=== PATIENT | female | born 1990 | race Caucasian/White ===

== ENCOUNTER 2016-12-11 13:55 | Observation (INO) | payer OTHER ==
[2016-12-11] MEDS ORDERED: Ondansetron INJ* 2 MG/ML VIAL IV ONE (14:35)
[2016-12-11 14:56] LABS: Hematocrit 40 % (35-47); Hemoglobin 13.3 g/dl (12.0-16.0); Mean Corpuscular HGB Conc 33 g/dl (31-36); Mean Corpuscular Hemoglobin 29 pg (27-31); Mean Corpuscular Volume 88 fL (80-97); Mean Platelet Volume 8 um3 (7.4-10.4); Red Blood Count 4.55 10^6/ul (4.0-5.4); Red Cell Distribution Width 14 % (10.5-15)
[2016-12-11 15:10] LABS: ALT 17 U/L (7-52); AST 29 U/L (13-39); Albumin 4.2 g/dL (3.2-5.2); Alkaline Phosphatase 57 U/L (34-104); Anion Gap 6 mmol/L (2-11); Blood Urea Nitrogen 10 mg/dL (6-24); C Reactive Protein 24.15 mg/L (< 5.00); CO2 Carbon Dioxide 26 mmol/L (22-32); Calcium 9.4 mg/dL (8.6-10.3); Chloride 104 mmol/L (101-111); Creatine Kinase 120 U/L (10-223); EGFR African American 116.5 (>60); EGFR Non-African American 90.6 (>60); Glucose 95 mg/dL (70-100); Lipase 27 U/L (11.0-82.0); Magnesium 2.1 mg/dL (1.9-2.7); Potassium 3.8 mmol/L (3.5-5.0); Sodium 136 mmol/L (133-145); Total Protein 7.2 g/dL (6.4-8.9)
[2016-12-11 15:24] LABS: Urine Bacteria 1+ (Absent); Urine Bilirubin Negative (Negative); Urine Glucose Negative (Negative); Urine Nitrite Negative (Negative)
[2016-12-11] MEDS ORDERED: Morphine INJ* 2 MG/ML 1 ML SYRINGE IV ONE ×2 (15:29→17:00)
[2016-12-11] MEDS ORDERED: Iohexol 300* (CONTRAST) 10 ML SDV IV ONE (16:07)
--- NOTE | 2016-12-11 17:47 | RAD ---
CLINICAL HISTORY: Right lower quadrant abdominal pain and vomiting COMPARISON: February 17, 2009 TECHNIQUE: Multiple contiguous axial CT scans were obtained of the abdomen and pelvis after the administration of intravenous contrast. Coronal and sagittal multiplanar reformations are submitted for review. Oral contrast was administered. FINDINGS: LUNG BASES: The lung bases are clear. LIVER: The liver is diffusely low in attenuation compared to the spleen. There are no focal hepatic parenchymal masses. BILE DUCTS: There is no intrahepatic or extrahepatic biliary dilatation. GALLBLADDER: The gallbladder is normal, without pericholecystic inflammatory change. PANCREAS: The pancreas is normal, without mass or ductal dilatation. SPLEEN: Normal in size and appearance. UPPER GI TRACT: Evaluation of the gastrointestinal tract is limited by incomplete gastric distention. The upper GI tract is unremarkable. SMALL BOWEL AND MESENTERY: The small bowel is normal in contour, course, and caliber. There is no obstruction or dilatation. There are multiple subcentimeter short axis mesenteric lymph nodes COLON: There is a tubular, vermiform, viscus that is blind-ending and origin is from the cecum. This is mildly enlarged measuring up to 0.8 cm in caliber with mild stranding of the fat of the mesial appendix. There is no loculated fluid collection to suggest abscess. ADRENALS: Normal bilaterally. KIDNEYS: The kidneys are normal in shape, size, contour, and axis. There is no hydronephrosis or nephrolithiasis. BLADDER: The bladder is smooth in contour. PELVIC ORGANS: The uterus and adnexa are grossly normal for technique. AORTA: The aorta is normal. IVC: Unremarkable LYMPH NODES: There is no lymphadenopathy by size criteria. ABDOMINAL WALL: There is a fat-containing umbilical hernia BONES AND SOFT TISSUES: Unremarkable OTHER: None IMPRESSION: 1. THE APPENDIX IS MILDLY DILATED WITH MILD STRANDING OF THE PERIAPPENDICEAL FAT. IN THE CORRECT CLINICAL SETTING, THIS MAY INDICATE EARLY APPENDICITIS. THERE IS NO LOCULATED FLUID COLLECTION TO SUGGEST ABSCESS. 2. FATTY LIVER
[2016-12-11] MEDS ORDERED: Piperac/Tazob 3.375 gm in NS* 3.375 GM/100 ML BAG IVPB ONE (18:32)
[2016-12-11] MEDS ORDERED: Bupivacaine 0.25% EPI 200,000* 30 ML SDV ONE (18:57)
[2016-12-11] MEDS ORDERED: Atracurium* 10 MG/ML 10 ML VIAL ONE (19:18)
[2016-12-11] MEDS ORDERED: Propofol* 10 MG/ML 20 ML BTL IV PUSH ONE (19:18)
[2016-12-11] MEDS ORDERED: fentaNYL* 50 MCG/ML 2 ML VIAL (100 MCG VIAL) ONE ×3 (19:18→20:44)
[2016-12-11] MEDS ORDERED: Midazolam* 1 MG/ML 5 ML VIAL (5 MG) ONE (19:18)
[2016-12-11] MEDS ORDERED: Dexamethasone IV* 4 MG/ML 1 ML (4 MG) ONE (19:18)
[2016-12-11] MEDS ORDERED: Ondansetron INJ* 2 MG/ML VIAL ONE (20:20)
--- NOTE | 2016-12-11 20:35 | ED ---
Abdominal Pain/Female - HPI Summary HPI Summary: Patient arrives to ED with CC of RLQ pain x 2 days. Worsening symptoms since last evening and endorses N/V. Denies D/C/MANNING or back pain. She admits to N/V x 4 weeks attributes this to medication change. She has never been diagnosed with abdominal etiology. She endorses diffuse pain upon palpation of the RLQ. Pain does not radiate and she states pain is worse with walking or sitting. Patient feels better with laying in a neutral position. She has not taken anything for the pain, and only takes medication for depression and anxiety. Denies urinary symptoms. Denies fever, chills, sweats. - History of Current Complaint Chief Complaint: EDAbdPain Stated Complaint: ABD PAIN Time Seen by Provider: 12/11/16 14:02 Hx Obtained From: Patient Hx Last Menstrual Period: 05/23/15 ?: No Onset/Duration: Sudden Onset Timing: Constant Severity Initially: Moderate Severity Currently: Moderate Pain Intensity: 8 Pain Scale Used: 0-10 Numeric Location: Discrete At: RLQ Character: Sharp, Burning Aggravating Factor(s): Nothing Alleviating Factor(s): Position Associated Signs and Symptoms: Positive: Nausea, Vomiting Allergies/Adverse Reactions: Allergies Allergy/AdvReac Type Severity Reaction Status Date / Time Haloperidol [From Haldol] Allergy Severe seizure Verified 12/11/16 13:56 Home Medications: Home Medications ARIPiprazole TAB* [Abilify 2 MG TAB*] 2 mg PO DAILY 12/11/16 [History Confirmed 12/11/16] PMH/Surg Hx/FS Hx/Imm Hx Previously Healthy: Yes Endocrine/Hematology History: Denies: Hx Diabetes, Hx Thyroid Disease Cardiovascular History: Denies: Hx Hypertension Respiratory History: Denies: Hx Asthma, Hx Chronic Obstructive Pulmonary Disease (COPD) GI History: Denies: Hx Ulcer Psychiatric History: Reports: Hx Anxiety, Hx Depression Denies: Hx Attention Deficit Hyperactivity Disorder, Hx Eating Disorder, Hx Panic Disorder, Hx Post Traumatic Stress Disorder, Hx Inpatient Treatment, Hx Community Mental Health Tx, Hx Schizophrenia, Hx Bipolar Disorder, Hx Suicide Attempt, Hx of Violent Episodes Against Others, Hx Substance Abuse, Other Psychiatric Issues/Disorders - Surgical History Surgery Procedure, Year, and Place: tonsillectomy. breast augmentation Infectious Disease History: No Infectious Disease History: Denies: Hx Clostridium Difficile, Hx Hepatitis, Hx Human Immunodeficiency Virus (HIV), Hx of Known/Suspected MRSA, Hx Shingles, Hx Tuberculosis, History Other Infectious Disease, Traveled Outside the [place] in Last 30 Days - Family History Family History: NON CONTRIBUTORY - Social History Occupation: Employed Full-time Lives: With Family Alcohol Use: None Alcohol Amount: 3-4 glasses wine approx 1 day weekly Substance Use Type: Reports: None Smoking Status (MU): Heavy Every Day Tobacco Smoker Type: Cigarettes Amount Used/How Often: shares with her boyfriend - doesn't buy cigs Review of Systems Constitutional: Negative Eyes: Negative Cardiovascular: Negative Respiratory: Negative Positive: Abdominal Pain, Vomiting, Nausea Genitourinary: Negative Positive: no symptoms reported, see HPI Musculoskeletal: Negative Skin: Negative Neurological: Negative Psychological: Normal All Other Systems Reviewed And Are Negative: Yes Physical Exam Triage Information Reviewed: Yes Vital Signs On Initial Exam: Initial Vitals Temp Pulse Resp BP Pulse Ox 97.8 F 78 16 138/60 100 12/11/16 13:56 12/11/16 13:56 12/11/16 13:56 12/11/16 13:56 12/11/16 13:56 Vital Signs Reviewed: Yes Appearance: Positive: Well-Appearing, Well-Nourished Skin: Positive: Warm, Skin Color Reflects Adequate Perfusion Head/Face: Positive: Normal Head/Face Inspection Eyes: Positive: Normal, MAXIMINO, Conjunctiva Clear ENT: Positive: Pharynx normal, TMs normal Neck: Positive: Supple, No Lymphadenopathy Respiratory/Lung Sounds: Positive: Clear to Auscultation, Breath Sounds Present Cardiovascular: Positive: Normal, RRR, Pulses are Symmetrical in both Upper and Lower Extremities Abdomen Description: Positive: Soft, Other: - tenderness upon palpation over RLQ , mcburneys point tenderness, negative ravi's, positive psoas, positive obturator Bowel Sounds: Positive: Present, Hypoactive Musculoskeletal: Positive: Normal Neurological: Positive: Normal, Sensory/Motor Intact, Speech Normal Psychiatric: Positive: Normal AVPU Assessment: Alert Diagnostics - Vital Signs Vital Signs Temp Pulse Resp BP Pulse Ox 12/11/16 17:42 18 12/11/16 16:30 69 101/63 97 12/11/16 16:15 18 12/11/16 16:00 67 106/57 99 12/11/16 15:41 61 102/56 99 12/11/16 15:17 70 99 12/11/16 15:00 102/45 12/11/16 14:54 75 99 12/11/16 14:51 94/43 12/11/16 13:56 97.8 F 78 16 138/60 100 - Laboratory Lab Results: Lab Results 12/11/16 12/11/16 12/11/16 Range/Units 14:20 14:20 14:20 WBC 9.0 (3.5-10.8) 10^3/ul RBC 4.55 (4.0-5.4) 10^6/ul Hgb 13.3 (12.0-16.0) g/dl Hct 40 (35-47) % MCV 88 (80-97) fL MCH 29 (27-31) pg MCHC 33 (31-36) g/dl RDW 14 (10.5-15) % Plt Count 298 (150-450) 10^3/ul MPV 8 (7.4-10.4) um3 Neut % (Auto) 62.9 (38-83) % Lymph % (Auto) 25.4 (25-47) % [place] % (Auto) 6.8 (1-9) % Eos % (Auto) 4.1 (0-6) % Baso % (Auto) 0.8 (0-2) % Absolute Neuts (auto) 5.6 (1.5-7.7) 10^3/ul Absolute Lymphs (auto) 2.3 (1.0-4.8) 10^3/ul Absolute Monos (auto) 0.6 (0-0.8) 10^3/ul Absolute Eos (auto) 0.4 (0-0.6) 10^3/ul Absolute Basos (auto) 0.1 (0-0.2) 10^3/ul Absolute Nucleated RBC 0.01 10^3/ul Nucleated RBC % 0.1 Sodium 136 (133-145) mmol/L Potassium 3.8 (3.5-5.0) mmol/L Chloride 104 (101-111) mmol/L Carbon Dioxide 26 (22-32) mmol/L Anion Gap 6 (2-11) mmol/L BUN 10 (6-24) mg/dL Creatinine 0.77 (0.51-0.95) mg/dL Est GFR ( Amer) 116.5 (>60) Est GFR (Non-Af Amer) 90.6 (>60) BUN/Creatinine Ratio 13.0 (8-20) Glucose 95 (70-100) mg/dL Lactic Acid 0.6 (0.5-2.0) mmol/L Calcium 9.4 (8.6-10.3) mg/dL Magnesium 2.1 (1.9-2.7) mg/dL Total Bilirubin 0.30 (0.2-1.0) mg/dL AST 29 (13-39) U/L ALT 17 (7-52) U/L Alkaline Phosphatase 57 (34-104) U/L Total Creatine Kinase 120 (10-223) U/L C-Reactive Protein 24.15 H (< 5.00) mg/L Total Protein 7.2 (6.4-8.9) g/dL Albumin 4.2 (3.2-5.2) g/dL Globulin 3.0 (2-4) g/dL Albumin/Globulin Ratio 1.4 (1-3) Lipase 27 (11.0-82.0) U/L Beta HCG, Quant < 0.60 mIU/mL Urine Color Urine Appearance Urine pH (5-9) Ur Specific [place] (1.010-1.030) Urine Protein (Negative) Urine Ketones (Negative) Urine Blood (Negative) Urine Nitrate (Negative) Urine Bilirubin (Negative) Urine Urobilinogen (Negative) Ur Leukocyte Esterase (Negative) Urine WBC (Auto) (Absent) Urine RBC (Auto) (Absent) Ur Squamous Epith Cells (Absent) Urine Bacteria (Absent) Urine Glucose (Negative) 12/11/16 Range/Units 14:58 WBC (3.5-10.8) 10^3/ul RBC (4.0-5.4) 10^6/ul Hgb (12.0-16.0) g/dl Hct (35-47) % MCV (80-97) fL MCH (27-31) pg MCHC (31-36) g/dl RDW (10.5-15) % Plt Count (150-450) 10^3/ul MPV (7.4-10.4) um3 Neut % (Auto) (38-83) % Lymph % (Auto) (25-47) % [place] % (Auto) (1-9) % Eos % (Auto) (0-6) % Baso % (Auto) (0-2) % Absolute Neuts (auto) (1.5-7.7) 10^3/ul Absolute Lymphs (auto) (1.0-4.8) 10^3/ul Absolute Monos (auto) (0-0.8) 10^3/ul Absolute Eos (auto) (0-0.6) 10^3/ul Absolute Basos (auto) (0-0.2) 10^3/ul Absolute Nucleated RBC 10^3/ul Nucleated RBC % Sodium (133-145) mmol/L Potassium (3.5-5.0) mmol/L Chloride (101-111) mmol/L Carbon Dioxide (22-32) mmol/L Anion Gap (2-11) mmol/L BUN (6-24) mg/dL Creatinine (0.51-0.95) mg/dL Est GFR ( Amer) (>60) Est GFR (Non-Af Amer) (>60) BUN/Creatinine Ratio (8-20) Glucose (70-100) mg/dL Lactic Acid (0.5-2.0) mmol/L Calcium (8.6-10.3) mg/dL Magnesium (1.9-2.7) mg/dL Total Bilirubin (0.2-1.0) mg/dL AST (13-39) U/L ALT (7-52) U/L Alkaline Phosphatase (34-104) U/L Total Creatine Kinase (10-223) U/L C-Reactive Protein (< 5.00) mg/L Total Protein (6.4-8.9) g/dL Albumin (3.2-5.2) g/dL Globulin (2-4) g/dL Albumin/Globulin Ratio (1-3) Lipase (11.0-82.0) U/L Beta HCG, Quant mIU/mL Urine Color Straw Urine Appearance Clear Urine pH 7.0 (5-9) Ur Specific [place] 1.002 L (1.010-1.030) Urine Protein Negative (Negative) Urine Ketones Negative (Negative) Urine Blood Negative (Negative) Urine Nitrate Negative (Negative) Urine Bilirubin Negative (Negative) Urine Urobilinogen Negative (Negative) Ur Leukocyte Esterase Trace H (Negative) Urine WBC (Auto) Trace(0-5/hpf) (Absent) Urine RBC (Auto) Trace(0-2/hpf) (Absent) Ur Squamous Epith Cells Present H (Absent) Urine Bacteria 1+ H (Absent) Urine Glucose Negative (Negative) Result Diagrams: 12/11/16 14:20 12/11/16 14:20 Lab Statement: Any lab studies that have been ordered have been reviewed, and results considered in the medical decision making process. Abdominal Pain Fem Course/Dx - Course Course Of Treatment: CT abd/pelvis: IMPRESSION: 1. THE APPENDIX IS MILDLY DILATED WITH MILD STRANDING OF THE PERIAPPENDICEAL FAT. IN THE. CORRECT CLINICAL SETTING, THIS MAY INDICATE EARLY APPENDICITIS. THERE IS NO LOCULATED. FLUID COLLECTION TO SUGGEST ABSCESS. 2. FATTY LIVER. Patient given morphine upon arrival and again 1 hour later. Zofran given for relief. Patient feeling improved, but symptoms remain. [place] to assess patient and taking to OR d/ t appendicitis. Patient OK to be discharged to surgical service. - Diagnoses Differential Diagnosis: Positive: Appendicitis, Diverticulitis, Ectopic , Ovarian Cyst Provider Diagnoses: Appendicitis Discharge - Discharge Plan Condition: Stable Disposition: ADMITTED TO [facility]
[2016-12-11] MEDS ORDERED: HYDROmorphone* 1 MG/ML 1 ML SYR ONE (20:44)
[2016-12-11] MEDS ORDERED: DiMENhydriNATE IV* 50 MG/ML VIAL IV PUSH PRN (20:45)
[2016-12-11] MEDS ORDERED: Scopolamine 1.5 mg* PATCH TRANSDERM PRN (20:45)
[2016-12-11] MEDS ORDERED: fentaNYL* 50 MCG/ML 2 ML VIAL (100 MCG VIAL) IV PRN (20:45)
[2016-12-11] MEDS ORDERED: HYDROmorphone* 1 MG/ML 1 ML SYR IV PRN ×2 (20:45→21:05)
[2016-12-11] MEDS ORDERED: Ondansetron INJ* 2 MG/ML VIAL IV PRN ×2 (20:45→21:05)
[2016-12-11] MEDS ORDERED: oxyCODONE/Acetamin 5/325 MG* TAB PO PRN (21:05)
[2016-12-11] MEDS ORDERED: Acetaminophen TAB* 325 MG PO PRN (21:05)
[2016-12-11] MEDS ORDERED: Ketorolac INJ* 30 MG/ML 1 ML VIAL IM PRN (21:05)
--- NOTE | 2016-12-11 21:05 | SURGPN ---
Brief Operative Note - Surgery Procedures: Procedures OPERATIVE REPORT PRE-OP: Acute appendicitis POST-OP: Same PROCEDURE: Laparoscopic appendectomy SURGEON: MD Roland ANESTHESIA: General with local with Dr. Spain ASST: none IVF: 1 liter of crystalloid EBL: min SPECIMEN: appendix DRAIN: none WOUND CLASS: 3 COMPLICATIONS: none TO PACU
--- NOTE | 2016-12-11 22:01 | HP ---
HISTORY AND PHYSICAL: DATE OF ADMISSION: 12/11/16 CHIEF COMPLAINT: Right lower quadrant abdominal pain with nausea and anorexia. HISTORY OF PRESENT ILLNESS: Ms. Josselyn Ramirez is a very pleasant 26-year- old woman who has had a long history of intermittent nausea with occasional vomiting who however yesterday developed some nausea with vomiting just around noon this time with lower abdominal pain described as a "stomach ache" in both lower quadrants. This persisted into the afternoon and evening and when she started moving around more, the pain became more localized in the right lower quadrant. She spent a fitful night with poor sleep last night and today had localized right lower quadrant pain that hurt when she moved, coughed, and remained anorexic without further vomiting. She had no diarrhea, fevers, shakes, or chills. There have been no urinary complaints. She was seen at Dr. Mobley's office today and with her physical exam of right lower quadrant pain, she was referred to the emergency room. In the emergency room, she was noted to be afebrile. She has exquisite tenderness in the right lower quadrant. Laboratory workup included a white blood cell count of 9 with no shift. Electrolytes, BUN, and creatinine were all within normal limits. She had a C-reactive protein of 24, which was mildly elevated. Beta HCG was negative. Urinalysis also was normal. She states that her menstrual period just recently ended. It was normal for her. She has had no vaginal bleeding or discomfort. She underwent a CT scan of the abdomen and pelvis. I did review these images. This shows an appendix, which is dilated with mild stranding of the periappendiceal fat suggestive of early acute appendicitis. There is no loculated fluid collection to suggest abscess. She had fatty liver and a small umbilical hernia, but no other acute findings. Surgical consultation has been obtained. PAST MEDICAL HISTORY: Anxiety, depression. PAST SURGICAL HISTORY: Tonsillectomy. MEDICATIONS: Include: 1. Abilify 2 mg daily. 2. Prozac 40 mg daily. 3. Xanax 0.5 mg b.i.d. p.r.n. ALLERGIES: HALOPERIDOL. SOCIAL HISTORY: She does not drink. She has been smoking cigarettes for the past several months, which is new for her. She works at the [employer]. REVIEW OF SYSTEMS: Cerebrovascular: No dizziness or visual disturbances. Cardiovascular: No chest pain or shortness of breath. Pulmonary: No wheezing or hemoptysis. GI: As per above. She has had some history with intermittent nausea and underwent an upper endoscopy, which was normal several years ago. Feeling is this may be related to her medicines which she takes. : Unremarkable. PHYSICAL EXAMINATION GENERAL: She is an overweight female, appears to be normal attention and grooming. She is quite alert, conversive, and pleasant. VITAL SIGNS: She is afebrile. Heart rate is in the 70s. Systolic blood pressure 101 and diastolic 63. Respirations 18. HEENT: Her sclerae are anicteric. Oral mucosa is somewhat dry. NECK: Trachea was midline. LUNGS: Clear to auscultation with normal respiratory effort. HEART: Regular rate and rhythm without murmurs, rubs, or gallops. ABDOMEN: Soft and nondistended. She has no prior surgical incision. She has a very small umbilical hernia, which is nontender. She had diminished bowel sounds throughout. She has exquisite tenderness in the right lower quadrant with rebound and guarding consistent with localized peritoneal irritation. PSYCHIATRIC: She is awake, alert, and oriented x3. She has normal judgment and insight. IMPRESSION: Right lower quadrant abdominal pain in the face of a normal white blood cell count; however, symptoms and history and physical exam all consistent with acute appendicitis. A CT scan of the abdomen and pelvis as discussed above and does show a dilated thickened appendix non-filled with contrast and some periappendiceal inflammation worrisome for acute appendicitis. After a long discussion with the patient and her mother, who was present in the emergency room, I do feel that she has acute appendicitis and I recommend an appendectomy. We discussed the typical presentations of appendicitis and management and we did discuss the possibility of an overnight admission with observation and repeat laboratory values in the morning to follow her course as I do not feel that she is at significant risk for acute complication at this point. Our other obvious option is to proceed with laparoscopy tonight for an appendectomy with the understanding that there are risks including but not limited to bleeding, infection, intraabdominal abscess formation, injury to peritoneal and retro-peritoneal structures, possibility of an open procedure, possibility of deep vein thrombosis in addition to risks of general anesthesia and a hospital stay were all explained. In addition, we discussed the possibility that the appendix may appear grossly normal at surgery and removing her appendix may not improve her symptoms. In addition, we discussed also the other option of antibiotic treatment that has been studied in [place], but is not a standard of care in the [place] and they do not want to proceed in this direction. After discussion, we are going to proceed with laparoscopic appendectomy this evening. Risks were discussed as above and we will keep her n.p.o., start IV antibiotics preoperatively and continue the IV fluids. CC: [facility]; Dr. Mobley; Dr. Javed* [id number]/[facility] #: [id number] [facility] CENTERJacob
[2016-12-11] MEDS: Heparin VIAL(*) 5000 UNITS/ML VIAL (FIVE THOUSAND) SUBCUT SCH (22:31)
[2016-12-11] MEDS ORDERED: ALPRAZolam TAB* 0.5 MG PO PRN (23:00)
--- NOTE | 2016-12-12 04:48 | OP ---
DATE OF OPERATION: 12/11/16 - ROOM #343 DATE OF : 89 SURGEON: Johnnie Watkins MD SCARRER: None. ANESTHESIOLOGIST: Dr. Spain. ANESTHESIA: General with local. PRE-OP DIAGNOSIS: Acute appendicitis. POST-OP DIAGNOSIS: Acute appendicitis. OPERATIVE PROCEDURE: Laparoscopic appendectomy. BRIEF HISTORY: Ms. Josselyn Ramirez is a 26-year-old woman who presented to the emergency room with 24 hours of worsening abdominal pain, now becoming localized in the right lower quadrant. She had normal white count and no fever , but exquisite tenderness in the right lower quadrant and a CT scan, which showed a thickened appendix with some mild periappendiceal inflammation worrisome for acute appendicitis. After discussion with the patient and review of her workup, she is being taken to the operating room for laparoscopic appendectomy. FINDINGS: The distal half of the appendix was edematous and thick walled with some suppurative inflammation as well as edematous mesentery. Right ovary, tunnel ileum, and right colon appeared to be unremarkable. ESTIMATED BLOOD LOSS: Minimal. IV FLUIDS: 1 L of crystalloid. WOUND CLASSIFICATION: 3. DRAINS: None. SPECIMENS: Appendix. COMPLICATIONS: None. DESCRIPTION OF PROCEDURE: Written informed consent was obtained, preoperative antibiotics were administered and the abdomen was marked with indelible ink and she was taken to the operating room, placed in the supine position. Sequential compression devices and a warming blanket were applied. General anesthesia was administered. The abdomen was prepped and draped in the usual sterile fashion. Time-out verification was completed. Next, a small transverse incision was made just above the umbilicus in the midline. The peritoneal cavity was entered under direct vision and a 12-mm blunt port was inserted into the abdominal cavity and the abdomen was insufflated to 15 mmHg. Under direct vision, a 5 mm port was placed in the left lower quadrant and a second 5 mm port was placed in the suprapubic midline position. There was no evidence of free fluid or peritonitis. The terminal ileum was identified and it was normal. The cecum was normal. The appendix was identified extending intraperitoneally down into the pelvis, delivered this up into view and its distal half was edematous, thick walled and injected with some fibrin inflammation as well as likewise findings in the mesoappendix in this area. The right ovary was identified. This appeared to be normal. The appendix was then delivered up into view and using LigaSure device, the mesoappendix was divided sequentially from distal to proximal. The proximal half of the appendix and the cecum appeared to be normal and once I had taken the appendix down to the base, it was divided with a single firing of a 45 mm nolan Endo MARIAN stapler and placed in an Endo Catch bag and brought out through the umbilical incision. The staple line was intact. Hemostasis was assured. There was no evidence of bleeding from the mesentry. All ports were then removed under direct vision of the camera. There was no abdominal wall bleeding. The umbilical fascia was closed with interrupted 0 Polysorb suture. The skin at all 3 incisions was approximated with subcuticular 4-0 Polysorb suture. Steri-Strips and sterile dressings were applied. The patient tolerated the procedure well and was taken to the recovery room in stable condition. CC: [facility]; Dr. Zelalem Javed* [id number]/[facility] #: [id number] PAVAN
[2016-12-12] MEDS: Heparin VIAL(*) 5000 UNITS/ML VIAL (FIVE THOUSAND) SUBCUT SCH (06:24)
[2016-12-12 07:40] VITALS: BP 112/52
--- NOTE | 2016-12-12 08:07 | PN ---
Progress Note - Progress Note SOAP: Subjective: Doing well-tolerating liquids without nausea Pain is adequately controlled Objective: Temp Pulse Resp BP Pulse Ox 98.0 F 76 18 112/52 99 12/12/16 07:14 12/12/16 07:14 12/12/16 07:14 12/12/16 07:14 12/12/16 07:14 Intake & Output 12/10/16 12/11/16 12/12/16 12/13/16 06:59 06:59 06:59 06:59 Intake Total 2680 Output Total 200 Balance 2480 Weight 230 lb Intake: IV Fluids 2480 LR 980 lr 1500 Oral 200 Output: Urine 200 PEX: Comfortable Lungs are CTA Abd is soft and non-distended. Incisions are clean and dry. Bowel sounds are present. Extremities without edema Assessment: POD #! s/p lap appendectomy for acute appendicitis Plan: D/C home No antibiotics Instructions and follow up arranged Percocet sent to [facility]. All discussed with mother last night after surgery
[2016-12-12] MEDS ORDERED: FLUoxetine CAP* 20 MG PO SCH (09:00)
[2016-12-12] MEDS ORDERED: ARIPiprazole TAB* 2 MG PO SCH (09:00)
[2016-12-14] MEDS ORDERED: Scopolomine PATCH Remove* 1 NOTE MISC PATCH OFF ONE (20:46)
== END 2016-12-12 10:33 | disposition home or self-care (01) ==
LOC: ED 13:55 → OR 19:03 → SSU 21:45
PROVIDERS: ADMIT Surgery; ATTEND Surgery
PROC: 0DTJ4ZZ Resection of Appendix, Percutaneous Endoscopic Approach (ICD-10-PCS; principal; 2016-12-11 19:01)
DX: K35.80 Unspecified acute appendicitis (principal); K76.0 Fatty (change of) liver, not elsewhere classified; F17.210 Nicotine dependence, cigarettes, uncomplicated; R10.31 Right lower quadrant pain; Z32.02 Encounter for pregnancy test, result negative
CPT/HCPCS: 36415; 74177; 80053; 81003; 81015; 82550; 83605; 83690; 83735; 84702; 85025; 86140; 87086; 88304; 96372; 96374; 96375; 99283; A9270-GY; C1776; G0378; J1100; J1170; J1644; J1885; J2250; J2270; J2405; J2543; J2704; J3010; Q9967

== ENCOUNTER 2017-07-31 08:39 | Day surgery (SDC) | payer OTHER ==
[~2017-07-31 08:39] MED LIST: Buffered Lidocaine 0.9% SYRIN* 5 ML/SYR SYRINGE INTRADERM ONE; Dexamethasone IV* 4 MG/ML 1 ML (4 MG) IV SLOW PU ONE; Famotidine IV* 10 MG/ML 2 ML (20 mg) IV ONE
[2017-07-31] MEDS ORDERED: Dexamethasone IV* 4 MG/ML 1 ML (4 MG) ONE (08:46)
[2017-07-31] MEDS ORDERED: ceFAZolin 2 GM PREMIX (*) 2 GM/50 ML BAG IVPB ONE (08:46)
[2017-07-31] MEDS ORDERED: Famotidine IV* 10 MG/ML 2 ML (20 mg) ONE (08:46)
[2017-07-31] MEDS ORDERED: Buffered Lidocaine 0.9% SYRIN* 5 ML/SYR SYRINGE ONE (08:46)
[2017-07-31] MEDS ORDERED: Ketorolac INJ* 30 MG/ML 1 ML VIAL ONE (09:33)
[2017-07-31] MEDS ORDERED: fentaNYL* 50 MCG/ML 5 ML VIAL (250 MCG VIAL) ONE (10:00)
[2017-07-31] MEDS ORDERED: Midazolam* 1 MG/ML 5 ML VIAL (5 MG) ONE (10:00)
[2017-07-31] MEDS ORDERED: Lidocaine 2% PF * 5 ML VIAL ONE (10:04)
[2017-07-31] MEDS ORDERED: Propofol* 10 MG/ML 20 ML BTL IV PUSH ONE (10:04)
[2017-07-31] MEDS ORDERED: Ondansetron INJ* 2 MG/ML VIAL ONE (10:04)
[2017-07-31] MEDS ORDERED: Bupivacaine 0.25% SDV* 30 ML ONE (10:28)
[2017-07-31] MEDS ORDERED: DiMENhydriNATE IV* 50 MG/ML VIAL IV PUSH PRN (10:33)
[2017-07-31] MEDS ORDERED: fentaNYL* 50 MCG/ML 2 ML VIAL (100 MCG VIAL) IV PRN (10:33)
[2017-07-31] MEDS ORDERED: HYDROmorphone INJ* 1 MG/ML CARPUJECT SYRINGE IV PRN (10:33)
[2017-07-31] MEDS ORDERED: Ondansetron INJ* 2 MG/ML VIAL IV PRN (10:33)
[2017-07-31] MEDS ORDERED: HYDROcodone/ACETAMIN 5-325 MG* 1 TAB PO PRN ×2 (10:33)
[2017-07-31] MEDS ORDERED: Scopolamine 1.5 mg* PATCH TRANSDERM PRN (10:33)
--- NOTE | 2017-07-31 11:56 | PN ---
Progress Note - Progress Note Date of Service: 07/31/17 Note: Brief Operative Note: Preop Dx: symptomatic cholecystectomy Postop Dx: same Procedure: laparoscopic cholecystectomy Anesthesia: GET Surgeon: Talon Asst: EMERALD Su Fluids: 1500 ml RL EBL: 20 ml Drains: none Specimen: GB Findings: dictated
[2017-07-31] MEDS ORDERED: HYDROcodone/ACETAMIN 5-325 MG* 1 TAB ONE (12:09)
[2017-07-31 12:41] VITALS: BP 109/68
--- NOTE | 2017-08-01 04:40 | OP ---
CC: Dr. Bao Mobley * DATE OF OPERATION: 07/31/17 - [facility] DATE OF : 89 SURGEON: Hansel Hanley MD BIBLE READER: EMERALD Ro ANESTHESIOLOGIST: Bao Hays MD ANESTHESIA: General anesthetic, local infiltration. PRE-OP DIAGNOSIS: Biliary colic. POST-OP DIAGNOSIS: Biliary colic. OPERATIVE PROCEDURE: Laparoscopic cholecystectomy. DESCRIPTION OF PROCEDURE: The patient was supine on the operative table. After adequate general anesthetic, compression stockings, Owen Hugger warmer, and intravenous antibiotics, the abdomen was prepped with antiseptic, draped in a sterile fashion. Right upper quadrant 5-mm Visiport cannula was placed until the peritoneum was entered under direct vision. Insufflation was carried out with carbon dioxide. Additional cannulae, 5 mm supraumbilical and right anterior axillary line and 12 mm subxiphoid, were placed through stab wounds under direct vision. The gallbladder was tended upward. Areolar tissue was taken down off the cystic duct and cystic artery. The common duct was identified and was well out of harm's way. View of safety was achieved and the duct and the artery were both doubly clipped and divided. Gallbladder was taken off the liver bed using electrocautery. Hemostasis was good. The operative field was irrigated with warm saline solution. Free fluid was suctioned out. Hemostasis was again confirmed. The gallbladder was removed through the subxiphoid port and sent in formalin for pathologic evaluation. Incisions were closed with 5-0 Vicryl followed by Steri-Strips. She tolerated the procedure well, was awakened and brought to the Recovery in good condition. No complications. No drains. Pathologic specimen is gallbladder. Sponge and instrument counts correct. Estimated blood loss less than 30 mL. [id number]/[facility] #: [id number] MTDD
[2017-08-03] MEDS ORDERED: Scopolamine PATCH Remove* 1 NOTE MISC PATCH OFF ONE (10:34)
== END 2017-07-31 12:50 | disposition home or self-care (01) ==
LOC: OR 08:39
PROVIDERS: ATTEND Surgery
DX: K80.10 Calculus of gallbladder with chronic cholecystitis without obstruction (principal); F17.200 Nicotine dependence, unspecified, uncomplicated; F32.9 Major depressive disorder, single episode, unspecified; F41.9 Anxiety disorder, unspecified; K21.9 Gastro-esophageal reflux disease without esophagitis; E66.9 Obesity, unspecified; Z68.39 Body mass index [BMI] 39.0-39.9, adult; Z88.5 Allergy status to narcotic agent; Z88.8 Allergy status to other drugs, medicaments and biological substances
CPT/HCPCS: 81025; 88304; J0690; J1100; J1885; J2250; J2405; J2704; J3010

== ENCOUNTER 2018-08-03 08:00 | Emergency (ER) | payer OTHER ==
[2018-08-03 08:15] VITALS: BP 126/73
--- NOTE | 2018-08-03 08:20 | UC ---
Respiratory Complaint HPI - HPI Summary HPI Summary: 28 yo female presents with RIGHT sided chest wall pain and cough. She tells me that for the past 3 weeks she has had a mild cough with intermittent clear phlegm. She developed pain in her right chest 5-6 days ago. She was seen here on 07/30 and a CXR was taken - wet read was ?RML PNA and she was treated with azithromycin. The radiologist reading the next day was negative for infiltrate, but pt was advised to complete anbx. Since that time her pain has increased and her pain is worse with movement, palpation, coughing, and deep breaths. Has been icing the area and taking ibuprofen with good relief, but her pain will later return. She does smoke marijuana, but no cigarettes. She has no personal or family hx of blood clots. No recent travel or OBC use. Denies fever, chills, SOB, OROZCO, sinus symptoms, abdominal pain, n/v. - History of Current Complaint Chief Complaint: UCGeneralIllness Stated Complaint: CONGESTION, ACHING PAIN Time Seen by Provider: 08/03/18 08:19 Hx Obtained From: Patient Hx Last Menstrual Period: 07/28/18 Onset/Duration: Gradual Onset Severity Initially: Mild Severity Currently: Moderate Pain Intensity: 5 Pain Scale Used: 0-10 Numeric - Allergies/Home Medications Allergies/Adverse Reactions: Allergies Allergy/AdvReac Type Severity Reaction Status Date / Time citalopram [From Celexa] Allergy See Comment Verified 08/03/18 08:15 haloperidol Allergy See Comment Verified 08/03/18 08:15 oxycodone Allergy Anxiety Verified 08/03/18 08:15 PMH/Surg Hx/FS Hx/Imm Hx Psychological History: Anxiety - Surgical History Surgical History: Yes Surgery Procedure, Year, and Place: breast augmentation- 2009- [facility] [place]. tonsillectomy- 2010- [facility] [place]. appendectomy- 11/2016- [facility] [place]. [place] 07/[place] - Family History Known Family History: Positive: None - Social History Occupation: Employed Full-time Lives: With Family Alcohol Use: None Alcohol Amount: 3-4 glasses wine approx 1 day weekly Substance Use Type: None Smoking Status (MU): Never Smoked Tobacco Type: Cigarettes Amount Used/How Often: 1/2 ppd for 1 yr Length of Time of Smoking/Using Tobacco: 1 yr Have You Smoked in the Last Year: Yes When Did the Patient Quit Smoking/Using Tobacco: november 2017 - Immunization History Most Recent Influenza Vaccination: 2012 Most Recent Tetanus Shot: within 10 yrs Most Recent Pneumonia Vaccination: never Review of Systems All Other Systems Reviewed And Are Negative: Yes Constitutional: Positive: Negative Skin: Positive: Negative Eyes: Positive: Negative ENT: Positive: Negative Respiratory: Positive: Cough Cardiovascular: Positive: Negative Gastrointestinal: Positive: Negative Motor: Positive: Negative Neurovascular: Positive: Negative Musculoskeletal: Positive: Other: - Right rib pain Neurological: Positive: Negative Psychological: Positive: Negative Physical Exam - Summary Physical Exam Summary: GENERAL: NAD. WDWN. No pain distress. SKIN: No rashes, sores, or open wounds. HEENT: Head: AT/NC Eyes: PERRLA. EOM intact. Conjunctiva clear without inflammation or discharge. Ears: Hearing grossly normal. TMs intact, no bulging, erythema, or edema. Nose: Nasal mucosa pink and moist. NTTP maxillary and frontal sinus. Throat: Posterior oropharynx without exudates, erythema, or tonsillar enlargement. Uvula midline. NECK: Supple. Nontender. No lymphadenopathy. CHEST: CTAB. No r/r/w. No accessory muscle use. Breathing comfortably and in no distress. CV: RRR. Without m/r/g. Pulses intact. Brisk cap refill. ABDOMEN: Soft. NTTP. No distention or guarding. MSK: RIGHT ~8th rib anterolateral aspect with moderate TTP. Pain reproduced with right UE movement NEURO: Alert. PSYCH: Age appropriate behavior. Triage Information Reviewed: Yes Vital Signs: Initial Vital Signs Temp 98.1 F 08/03/18 08:08 Pulse 86 08/03/18 08:08 Resp 16 08/03/18 08:08 BP 126/73 08/03/18 08:08 Pulse Ox 100 08/03/18 08:08 Vital Signs Reviewed: Yes UC Diagnostic Evaluation - Laboratory O2 Sat by Pulse Oximetry: 100 Respiratory Course/Dx - Course Course Of Treatment: Suspect costochondritis vs intercostal muscle strain. I spoke with Dr. Wallis who performed a regional nerve block. Pt reported feeling mild relief and her pain went from about a 9/10 to 6-7/10. Will try her with flexeril as she has had this in the past with no adverse effects. Advised to f/u with PCP, accupuncturist, or chiropractor if her pain persist. If her symptoms worsen or if she develops new symptoms to go to the ED. Pt voiced understanding and is in agreement with plan. - Differential Dx/Diagnosis Provider Diagnoses: Right rib pain Discharge - Sign-Out/Discharge Documenting (check all that apply): Patient Departure All imaging exams completed and their final reports reviewed: No Studies - Discharge Plan Condition: Stable Disposition: HOME Prescriptions: Cyclobenzaprine TAB* [Flexeril 10 MG TAB*] 10 mg PO BID PRN #14 tab PRN Reason: Pain Patient Education Materials: Costochondritis (ED), Peripheral Nerve Block (DC) , Chest Wall Pain (ED) Forms: *Work Release Referrals: Mónica Cochran NP [Primary Care Provider] - Additional Instructions: If you develop a fever, shortness of breath, chest pain, new or worsening symptoms - please call your PCP or go to the ED. 1) Rest and apply ice/heat to the area of discomfort 2) May try Acupuncture or care consultant to help alleviate your pain 3) May continue to take 600-800mg ibuprofen every 6-8hours as needed for pain - Billing Disposition and Condition Condition: STABLE Disposition: Home
[2018-08-03] MEDS ORDERED: Bupivacaine 0.25% SDV PF* 10 ML VIAL INJ ONE ×2 (08:34→09:21)
--- NOTE | 2018-08-03 10:22 | UC ---
- Progress Note Progress Note: I supervised the care of the physician assistant property manager and I performed a history and physical on this patient. History: Right-sided anterior chest pain worse with cough and deep breathing after recent bronchitis-like syndrome. Physical exam: No sign of DVT. Comfortable breathing. Reproducible discomfort with palpation in the right anterior and lateral ribs Plan: Intercostal or regional nerve block for discomfort Procedure: Right-sided intercostal nerve block Reason: Treatment of pain Description: The patient was verbally consented and a timeout was performed. Alcohol was used to treat the skin overlying the right ninth-11th intercostal space on the right. A total of 20 cc was injected into the chest wall just under the ribs with a 25-gauge needle. Patient's pain relief was moderate. She tolerated this well without complication. Course/Dx - Diagnoses Provider Diagnoses: Chest wall pain Discharge - Sign-Out/Discharge Documenting (check all that apply): Patient Departure All imaging exams completed and their final reports reviewed: No Studies - Discharge Plan Condition: Improved Disposition: HOME Prescriptions: Cyclobenzaprine TAB* [Flexeril 10 MG TAB*] 10 mg PO BID PRN #14 tab PRN Reason: Pain Patient Education Materials: Costochondritis (ED), Peripheral Nerve Block (DC) , Chest Wall Pain (ED) Forms: *Work Release Referrals: Mónica Cochran NP [Primary Care Provider] - Additional Instructions: If you develop a fever, shortness of breath, chest pain, new or worsening symptoms - please call your PCP or go to the ED. 1) Rest and apply ice/heat to the area of discomfort 2) May try Acupuncture or continuum of care manager to help alleviate your pain 3) May continue to take 600-800mg ibuprofen every 6-8hours as needed for pain - Billing Disposition and Condition Condition: IMPROVED Disposition: Home - Attestation Statements Document Initiated by Rajeshe: No
== END 2018-08-03 10:00 | disposition home or self-care (01) ==
LOC: UCEAST 08:00
DX: R07.81 Pleurodynia (principal); R05 Cough; Z87.891 Personal history of nicotine dependence; Z88.5 Allergy status to narcotic agent
CPT/HCPCS: 99212; G0463; J3490

== ENCOUNTER 2019-04-13 20:00 | Emergency (ER) | payer OTHER ==
--- NOTE | 2019-04-13 20:28 | ED ---
Psychiatric Complaint - HPI Summary HPI Summary: This patient is a 28 year old F presenting to [facility] with thought of injuring herself. Pt was brought in by , due to concerns from her boyfriend. Pt sent a text to her boyfriend that said she was tired and just wanted to cut herself. Pt is in therapy and on medication for her issues. She reports that she did not mean what she said and that its not worth it. Pt has been admitted due to cutting herself, the last time being 2011. - History Of Current Complaint Chief Complaint: EDMentalHealth Time Seen by Provider: 04/13/19 20:14 Hx Obtained From: Patient Hx Last Menstrual Period: 07/28/18 Onset/Duration: Lasting Hours, Resolved Timing: Constant Character: Lethargic Related History: Positive For: Prior Psychiatric Issues Has Suicidal: Reports: With A Plan, Has Prior Attempt(s) - Allergies/Home Medications Allergies/Adverse Reactions: Allergies Allergy/AdvReac Type Severity Reaction Status Date / Time citalopram [From Celexa] Allergy See Comment Verified 04/13/19 20:07 haloperidol Allergy See Comment Verified 04/13/19 20:07 oxycodone Allergy Anxiety Verified 04/13/19 20:07 Home Medications: Home Medications Ranitidine TAB (NF) [Zantac TAB (NF)] 300 mg PO DAILY 04/13/19 [History Confirmed 04/13/19] PMH/Surg Hx/FS Hx/Imm Hx Endocrine/Hematology History: Denies: Hx Diabetes, Hx Thyroid Disease, Hx Anemia Cardiovascular History: Denies: Hx Hypertension Respiratory History: Denies: Hx Asthma, Hx Chronic Obstructive Pulmonary Disease (COPD) GI History: Reports: Other GI Disorders - cholelithiasis, right upper quadrant pain Denies: Hx Ulcer Musculoskeletal History: Reports: Hx Scoliosis Sensory History: Denies: Hx Contacts or Glasses, Hx Hearing Aid Opthamlomology History: Denies: Hx Contacts or Glasses Neurological History: Reports: Other Neuro Impairments/Disorders - lumbar scoliosis, pinched nerve lumbar spine Psychiatric History: Reports: Hx Anxiety - takes rx, Hx Depression, Other Psychiatric Issues/Disorders - OCD Denies: Hx Attention Deficit Hyperactivity Disorder, Hx Eating Disorder, Hx Panic Disorder, Hx Post Traumatic Stress Disorder, Hx Inpatient Treatment, Hx Community Mental Health Tx, Hx Schizophrenia, Hx Bipolar Disorder, Hx Suicide Attempt, Hx of Violent Episodes Against Others, Hx Substance Abuse - Cancer History Hx Chemotherapy: No - Surgical History Surgery Procedure, Year, and Place: [place] [facility] [place] [facility] [place] [facility] [place] Hx Anesthesia Reactions: No Infectious Disease History: No Infectious Disease History: Denies: Hx Clostridium Difficile, Hx Hepatitis, Hx Human Immunodeficiency Virus (HIV), Hx of Known/Suspected MRSA, Hx Shingles, Hx Tuberculosis, History Other Infectious Disease, Traveled Outside the in Last 30 Days - Family History Known Family History: Positive: None Family History: NON CONTRIBUTORY - Social History Occupation: Employed Full-time Alcohol Use: Weekly Alcohol Amount: 3-4 glasses wine approx 1 day weekly Hx Substance Use: Yes Substance Use Type: Reports: Marijuana Hx Tobacco Use: Yes Smoking Status (MU): Former Smoker Type: Cigarettes Amount Used/How Often: 1/2 ppd for 1 yr Length of Time of Smoking/Using Tobacco: 1 yr Have You Smoked in the Last Year: Yes Review of Systems Negative: Fever Positive: Depressed All Other Systems Reviewed And Are Negative: Yes Physical Exam - Summary Physical Exam Summary: VITAL SIGNS: Reviewed. GENERAL: Patient is a well-developed and nourished female who is lying comfortable in the stretcher. Patient is not in any acute respiratory distress. HEAD AND FACE: No signs of trauma. No ecchymosis, hematomas or skull depressions. No sinus tenderness. EYES: PERRLA, EOMI x 2, No injected conjunctiva, no nystagmus. EARS: Hearing grossly intact. Ear canals and tympanic membranes are within normal limits. MOUTH: Oropharynx within normal limits. NECK: Supple, trachea is midline, no adenopathy, no JVD, no carotid bruit, no c- spine tenderness, neck with full ROM CHEST: Symmetric, no tenderness at palpation LUNGS: Clear to auscultation bilaterally. No wheezing or crackles. CVS: Regular rate and rhythm, S1 and S2 present, no murmurs or gallops appreciated. ABDOMEN: Soft, non-tender. No signs of distention. No rebound no guarding, and no masses palpated. Bowel sounds are normal. EXTREMITIES: FROM in all major joints, no edema, no cyanosis or clubbing. NEURO: Alert and oriented x 3. No acute neurological deficits. Speech is normal and follows commands. SKIN: Dry and warm PSYCH: Pt is no longer suicidal. Triage Information Reviewed: Yes Vital Signs On Initial Exam: Initial Vitals Temp Pulse Resp BP Pulse Ox 97.8 F 79 16 156/89 99 04/13/19 20:02 04/13/19 20:02 04/13/19 20:02 04/13/19 20:02 04/13/19 20:02 Vital Signs Reviewed: Yes Diagnostics - Vital Signs Vital Signs Temp Pulse Resp BP Pulse Ox 04/13/19 20:02 97.8 F 79 16 156/89 99 - Laboratory Lab Statement: Any lab studies that have been ordered have been reviewed, and results considered in the medical decision making process. Re-Evaluation - Re-Evaluation First Eval Re-Evaluation Time: 22:22 Comment: MHE : pt will be discharged with dx of unspecified depression. Course/Dx - Course Course Of Treatment: This patient is a 28 year old F presenting to [facility] with thought of injuring herself. Pt was brought in by , due to concerns from her boyfriend. Pt sent a text to her boyfriend that said she was tired and just wanted to cut herself. Pt is in therapy and on medication for her issues. She reports that she did not mean what she said and that its not worth it. Pt has been admitted due to cutting herself, the last time being 2011. Pt is no longer suicidal. UA obtained. After MHE Patient was cleared to be discharged. The patient is agreeable with this plan. - Differential Dx/Clinical Impression Provider Diagnosis: Depression Discharge - Sign-Out/Discharge Documenting (check all that apply): Patient Departure - Home Patient Received Moderate/Deep Sedation with Procedure: No - Discharge Plan Condition: Stable Disposition: HOME Patient Education Materials: Depression (ED), Help Prevent Suicide (ED) Referrals: Mónica Cochran NP [Primary Care Provider] - - Billing Disposition and Condition Condition: STABLE Disposition: Home - Attestation Statements Document Initiated by Scribe: Yes Documenting Scribe: Amisha Arana Provider For Whom Scribe is Documenting (Include Credential): Dr. Lala Macedo MD Scribe Attestation: Amisha Castillo scribed for Dr. Lala Macedo MD on 04/14/19 at 0651. Scribe Documentation Reviewed: Yes Provider Attestation: The documentation as recorded by the scribe, Amisha Arana accurately reflects the service I personally performed and the decisions made by me, Dr. Lala Macedo MD Status of Scribjoann Document: Viewed
[2019-04-13 21:14] LABS: Urine Appearance Cloudy; Urine Bilirubin Negative (Negative); Urine Blood Negative (Negative); Urine Color Yellow; Urine Glucose Negative (Negative); Urine Ketones Negative (Negative); Urine Nitrite Negative (Negative); Urine Protein Negative (Negative); Urine Specific Gravity 1.019 (1.010-1.030); Urine Urobilinogen Negative (Negative)
[2019-04-13 21:26] LABS: Urine Benzodiazepine Screen Presumptive Positive (None Detect); Urine Opiates Screen None Detected (None Detect)
[2019-04-13 23:24] VITALS: BP 142/77
== END 2019-04-13 22:40 | disposition home or self-care (01) ==
LOC: ED 20:00
DX: F32.9 Major depressive disorder, single episode, unspecified (principal); Z87.891 Personal history of nicotine dependence; Z79.899 Other long term (current) drug therapy
CPT/HCPCS: 80307; 81003; 99285